=== PATIENT | female | born 1965 | race Caucasian/White ===

== ENCOUNTER → 2017-10-06 | Outpatient (REF) | payer BC | LOC: M SFHCWAGY 10:10 | PROVIDERS: ATTEND Nurse Practitioner Family | DX: Z12.4 Encounter for screening for malignant neoplasm of cervix (principal) ==

== ENCOUNTER → 2017-10-06 | Outpatient (CLI) | payer BC ==
--- NOTE | 2017-10-06 12:44 | REPMRS ---
Patient History The patient states she had a clinical breast exam in 09/2017. Patient had first child at age 36. No known family history of cancer. Took progesterone for 2 months. Digital Woman Screen Mammo: October 06, 2017 - Exam #: [id number] Bilateral CC and MLO view(s) were taken. Technologist: Bettina Dobson Technologist Prior study comparison: October 07, 2016, digital woman screen mammo performed at [facility] to [facility]. October 09, 2015, digital woman screen mammo performed at [facility] to [facility]. FINDINGS: There are scattered fibroglandular densities. There has been no change in the appearance of the mammogram from the prior studies. There is a mild amount of residual fibroglandular tissue which is fairly symmetric. There is no interval development of dominant mass, architectural distortion, or clustered microcalcification suggestive of malignancy. ASSESSMENT: BI-RADS/ACR category 1 mammogram. Negative. Recommendation Routine screening mammogram in 1 year (for women over age 40). This mammogram was interpreted with the aid of an FDA-approved computer-aided dectection system. Electronically Signed By: Rivera Dial MD 10/06/17 [id number]
== END ==
LOC: M WHC 09:14
PROVIDERS: ATTEND Nurse Practitioner Family
DX: Z12.31 Encounter for screening mammogram for malignant neoplasm of breast (principal); Z92.23 Personal history of estrogen therapy

== ENCOUNTER → 2018-12-30 | Outpatient (CLI) | payer BC ==
--- NOTE | 2018-12-30 13:45 | REPMRS ---
Patient History The patient states she had a clinical breast exam in 01/12 No known family history of cancer. Took progesterone for 2 months. 3D TOMOSYNTHESIS WAS PERFORMED. Digital Woman Screen Mammo: December 30, 2018 - Exam #: [id number] Bilateral CC and MLO view(s) were taken. Technologist: Mary Anne Urena, Technologist Prior study comparison: October 06, 2017, digital woman screen mammo performed at [facility]. October 07, 2016, digital woman screen mammo performed at [facility] to [facility]. FINDINGS: There are scattered fibroglandular densities. There has been no change in the appearance of the mammogram from the prior studies. There is a mild amount of residual fibroglandular tissue which is fairly symmetric. There is no interval development of dominant mass, architectural distortion, or clustered microcalcification suggestive of malignancy. Assessment: BI-RADS/ACR category 1 mammogram. Negative Mammogram. Recommendation Routine screening mammogram in 1 year (for women over age 40). This mammogram was interpreted with the aid of an FDA-approved computer-aided dectection system. Electronically Signed By: Rivera Dial MD 12/30/18 [id number]
== END ==
LOC: M WHC 10:51
PROVIDERS: ATTEND Nurse Practitioner Family
DX: Z12.31 Encounter for screening mammogram for malignant neoplasm of breast (principal)

== ENCOUNTER → 2020-01-03 | Outpatient (CLI) | payer BC ==
--- NOTE | 2020-01-03 11:41 | REPMRS ---
Patient History The patient states she had a clinical breast exam in December 2019. No known family history of cancer. Took progesterone for 2 months. Digital Woman Screen Mammo: January 03, 2020 - Exam #: [id number] Bilateral CC and MLO view(s) were taken. Technologist: Fatmata Akhtar, Technologist Prior study comparison: December 30, 2018, bilateral digital woman screen mammo performed at [facility]. October 06, 2017, digital woman screen mammo performed at [facility]. October 07, 2016, digital woman screen mammo performed at [facility]. FINDINGS: There are scattered fibroglandular densities. There has been no change in the appearance of the mammogram from the prior studies. There is a mild amount of scattered fibroglandular density which is fairly symmetric. There is no interval development of dominant mass, architectural distortion, or grouped microcalcification suggestive of malignancy. 3-D tomosynthesis shows no additional findings. Assessment: BI-RADS/ACR category 1 mammogram. Negative Mammogram. Recommendation Routine screening mammogram of both breasts in 1 year (for women over age 40). This patient's Lifetime Breast Cancer Risk is estimated at 13.4 %. This mammogram was interpreted with the aid of an FDA-approved computer-aided dectection system. Electronically Signed By: Salvador Ayon MD 01/03/20 1392
== END ==
LOC: M WHC 10:03
PROVIDERS: ATTEND Nurse Practitioner Family
DX: Z12.31 Encounter for screening mammogram for malignant neoplasm of breast (principal)

== ENCOUNTER → 2020-01-03 | Outpatient (REF) | payer BC | LOC: M SFHCWAGY 13:04 | PROVIDERS: ATTEND Nurse Practitioner Family | DX: Z12.4 Encounter for screening for malignant neoplasm of cervix (principal) | CPT/HCPCS: 87624; G0123 ==

== ENCOUNTER → 2020-04-05 | Outpatient (CLI) | payer BC | LOC: M LABSMTC 10:31 | PROVIDERS: ATTEND Pediatrics | DX: Z03.818 Encounter for observation for suspected exposure to other biological agents ruled out (principal); Z11.59 Encounter for screening for other viral diseases | CPT/HCPCS: C9803; U0003 ==

== ENCOUNTER → 2020-07-06 | Outpatient (CLI) | payer SELFPAY | LOC: M LABSMTC 09:37 | PROVIDERS: ATTEND Pediatrics | DX: Z20.828 Contact with and (suspected) exposure to other viral communicable diseases (principal) ==

== ENCOUNTER → 2021-01-08 | Outpatient (CLI) | payer BC, SELFPAY ==
--- NOTE | 2021-01-08 12:05 | REPMRS ---
Patient History The patient states she had a clinical breast exam in December 2020. No known family history of cancer. Took progesterone for 2 months. Digital Woman Screen Mammo: January 08, 2021 - Exam #: [id number] Bilateral CC and MLO view(s) were taken. Technologist: RT Norman Prior study comparison: January 03, 2020, bilateral digital woman screen mammo performed at [facility]. December 30, 2018, bilateral digital woman screen mammo performed at [facility]. October 06, 2017, digital woman screen mammo performed at [facility]. FINDINGS: The breast tissue is almost entirely fat. The [place] volumetric breast density category is: A. There has been no change in the appearance of the mammogram from the prior studies. There is no interval development of dominant mass, architectural distortion, or grouped microcalcification typical of malignancy. 3-D tomosynthesis shows no additional findings. Assessment: BI-RADS/ACR category 1 mammogram. Negative Mammogram. Recommendation Routine screening mammogram of both breasts in 1 year (for women over age 40). This patient's [facility] Lifetime Breast Cancer RIsk is estimated at 13.1 %. This mammogram was interpreted with the aid of an FDA-approved computer-aided dectection system. Electronically Signed By: Salvador Ayon MD 01/08/21 [id number]
== END ==
LOC: M WHC 10:03
PROVIDERS: ATTEND Nurse Practitioner Family
DX: Z12.31 Encounter for screening mammogram for malignant neoplasm of breast (principal)

== ENCOUNTER 2021-09-14 13:59 | Emergency (ER) | payer BC ==
[~2021-09-14] VITALS: Ht 160 cm; Wt 90.0 kg
[2021-09-14 14:11] VITALS: BP 144/80
--- OUTSIDE RECORDS SUMMARY | 2021-09-14 14:11 | CCD ---
Continuity of Care Document (CCD) Created on: 07/27/2021 Vee Jara External Reference #: [id number] : [id number] Sex: Female Author Author Lab Schedule, Vee Spencer Organization Unknown Address [address] [place] [phone] Phone Unavailable Care Team Providers Care Italian Tutor Name Role Phone Marilee Montaño MD AUTM [phone] [facility] AUTM [phone] Problems Active Problems Provider Date Allergic rhinitis Marilee Montaño M.D. Onset: 2 Migraine Marilee Montaño M.D. Onset: 2 Vitamin D deficiency Marilee Montaño M.D. Onset: 06/14/20 15 Benign essential hypertension Marilee Montaño M.D. Onset: 06/14/2015 Essential hypertension Marilee Montaño M.D. Onset: 2014 Social History Type Date Description Comments Sex Unknown ETOH Use Denies alcohol use Tobacco Use Start: Unknown Patient has never smoked Allergies and adverse reactions Description No Known Drug Allergies Medications Active Medications SIG Qnty Indications Ordering Provide r Date B-Complex Capsules 1 by mouth every day 90caps Marilee Montaño M.D. 01/23/2021 Tumeric qd Marilee Montaño M.D. 0 01/23/2021 Co-Enzyme Q10 100mg Capsules 1-2 every day Marilee Montaño M.D. 01/24/20 21 Powered Collagen mix in coffee qd Marilee carpenter M.D. 01/23/2021 Tylenol PM Extra Strength 500-25mg Tablets 1-2 by mouth every night at bedtime as needed Marilee Montaño M.D. 09/18/2020 Reserval 2 by mouth every day Marilee langston M.D. 06/14/2020 Cholestoff 450mg Tablets 4/d Marilee Montaño M.D. 06/14/2020 Loratadine 10mg Capsules 1 by mouth every day Marilee Montaño M.D. 12/13/19 20 Fish Oil 1000mg Capsules 1 by mouth every day Marilee Montaño M.D. 12/13/19 20 Probiotic Capsules 1 by mouth every day Marilee Montaño M.D. 12/13/2019 Lisinopril 10mg Tablets take one tablet by mouth at bedtime 90tabs Marilee Montaño M.D. 018 Fluticasone Propionate 50mcg/Act Suspension 2 sprays each nostril daily prn 16gm Marilee Montaño M.D. 03/17/2017 Azelastine HCL (Nasal) 0.1% Soluti on two sprays in each nostril once daily prn 30ml Marilee agarwal M.D. 03/17/2017 Neti Pot Kit Sinus Wash Kit prn Marilee Montaño M.D. 02/15/2016 Vitamin D3 5000Unit Capsules every day Marilee Montaño M.D. 06/14/2015 Vitamin E 400Unit Capsules 1 by mouth 1-2x/d 30caps Marilee Montaño M.D. 06/14/20 15 Excedrin Migraine [id number] Tab lets po bid prn Marilee Montaño M.D. 12/06/19 14 Saline Nasal [place] 0.65% Solution use as directed prn Marilee Montaño M.D. 03/17/20 12 Naratriptan HCL 2.5mg Tablets take 1 tablet for migraine 24tabs Marilee Montaño M.D. 02/2012 Multivitamins Capsules 1 po qd Unknown Medications Administered in Office Medication SIG Qnty Indications Ordering Provider Date Immunization Adminstration,1 Vaccine/Tox oid Injection Marilee Montaño M.D. 11/27 Immunization Adminstration,1 Vaccine/Tox oid Injection Marilee Montaño M.D. 09/26 Immunizations CPT Code Status Date Vaccine Lot # [id number] Given 12/13/2019 Adacel- Tetanus Diphtheria P ertussis [id number] Given 10/05/2018 Influenza Virus Vaccine, Quadrivalent (Cciiv4), Derived From Cell [id number] Given 08/19/2016 Fluvirin Virus Vaccine [id number] Q2037 Given 08/21/2015 Fluvirin Virus Vaccine 15926 01 Q2037 Given 08/22/2014 Fluvirin Virus Vaccine [id number] 21 Q2037 Refused 08/16/2013 Fluvirin Virus Vaccine [id number] Refused 09/01/2012 Fluvirin Virus Vaccine Vital Signs Date Vital Result Comment 01/23/2021 10:56am BP Systolic 128 mmHg RT Arm BP Diastolic 78 mmHg RT Arm Heart Rate 68 /min Height 63.25 inches 5'3.25" Weight 202.00 lb BMI (Body Mass Index) 35.5 kg/m2 09/18/2020 10:00am BP Systolic 138 mmHg RT Arm BP Diastolic 86 mmHg RT Arm Heart Rate 68 /min Height 63.25 inches 5'3.25" Weight 200.00 lb BMI (Body Mass Index) 35.1 kg/m2 Results Test Acquired Date Facility Test Result H/L Range Note Basic Metabolic Panel 07/27/2021 [facility] Image Archivist: Dr Jack [place] [id number] [phone] Glucose 87 mg/dL 74 - 99 1 BUN 12 mg/dL 7 - 18 Creatinine 0.8 mg/dL 0.6 - 1.3 Sodium 145 mEq/L 136 - 145 Potassium 4.4 mEq/L 3.5 - 5.1 Chloride 108 mEq/L High 98 - 107 Carbon Dioxide 29 mEq/L 21 - 32 Calcium 9.2 mg/dL 8.5 - 10.1 GFR >= 60 mL/min >60 GFR >= 60 mL/min >60 2 Lipid Profile 07/27/2021 [facility] Image Archivist: [place] [address] [phone] Cholesterol 213 mg/dL High 131 - 200 Triglycerides 56 mg/dL 30 - 150 HDL Cholesterol 59 mg/dL 35 - 60 LDL (Calculated) 143 CALC 50 - 159 Laboratory test finding 01/31/2021 [facility] Image Archivist: Dr Jack Montana [place] [id number] [phone] Fecal Immunochemical Test NEGATIVE Negati ve 1 100-125 mg/dL PRE-DIABET ES/FASTING >126 mg/dL DIABETES/FASTING 2 CHRONIC KIDNEY DISEASE STAGI NG PER NKF STAGE I & II GFR >= 60 NORMAL TO MILDLY DECREASED STAGE III GFR 30-59 MODERATELY DECREASED STAGE IV GFR 15-29 SEVERELY DECREASED STAGE V GFR <15 VERY LITTLE GFR LEFT ESRD GFR <15 ON FIELD AUTOMOBILE ADJUSTER Procedures Date Code Description Status 01/08/2021 [id number] Mammogram Completed 10/06/2017 [id number] Mammogram Completed Medical Devices Description No Information Available Encounters Description No Information Available Assessments Date Code Description Provider 01/31/2021 Z12.12 Encounter for screening for tello gnant neoplasm of rectum Marilee Montaño M.D. 01/31/2021 Z12.12 Encounter for screening for tello gnant neoplasm of rectum Lab Schedule Plan of Treatment Future Appointment(s):* 07/30/2021 9:30 am - Marilee Montaño M.D. at [facility] 01/23/2021 - Marilee Montaño M.D.* Z00.00 Encounter for general adult medical examination without abnormal findings * I10 Essential (primary) hypertension * E78.00 Pure hypercholesterolemia, unspecified * G43.909 Migraine, unspecified, not intractable, without status migra * J30.9 Allergic rhinitis, unspecified * G47.00 Insomnia, unspecified * E66.09 Other obesity due to excess calories * Z68.35 Body mass index [BMI] 35.0-35.9, adult * Z13.89 Encounter for screening for other disorder * All * New Medication:* Powered Collagen - mix in coffee qd * B-Complex - 1 by mouth every day * Tumeric - qd * Co-Enzyme Q10 100 mg - 1-2 every day * Comments:* 7. Menopausal. Option of Estroven based products discussed.8. Health Maintenance. She just had her pap smear with Gynecology. Mammogram was obtained and is normal. Adacel was administered 12/13/2019, Patient had shingles July 2017. She gets an annual flu shot and she is considering COVID vaccine. She will do the stool hemoccult Functional Status Description No Information Available Mental Status Description No Information Available Referrals Description No Information Available
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
--- OUTSIDE RECORDS SUMMARY | 2021-09-14 14:11 | CCD | Continuity of Care Document ---
Author Author Lab Schedule, Vee Spencer Organization Unknown Address [address] [place] [address] Phone Unavailable Care Team Providers Care Laboratory Secretary Name Role Phone Marilee Montaño MD AUTM [phone] [facility] AUTM [phone] Problems Active Problems Provider Date Allergic rhinitis [...] SIG Qnty Indications Ordering Provide r Date Lisinopril 20mg Tablets take one tablet by mouth at bedtime 90tabs Marilee Montaño M.D. 021 Powered Collagen mix in coffee qd Marilee carpenter M.D. 01/23/2021 B-Complex Capsules 1 by mouth every day 90caps Marilee Montaño M.D. 01/23/2021 Tumeric qd Marilee Montaño M.D. 0 01/23/2021 Co-Enzyme Q10 100mg Capsules 1-2 every day Marilee Montaño M.D. 01/24/20 21 Tylenol PM Extra Strength 500-25mg Tablets 1-2 by mouth every night at bedtime as needed Marilee Montaño M.D. 09/18/2020 Reserval 2 by mouth every day Marilee langston M.D. 06/14/2020 Cholestoff 450mg Tablets 4/d Marilee Montaño M.D. 06/14/2020 Probiotic Capsules 1 by mouth every day Marilee Montaño M.D. 12/13/2019 Fish Oil 1000mg Capsules 1 by mouth every day Marilee Montaño M.D. 12/13/19 20 Loratadine 10mg Capsules 1 by mouth every day Marilee Montaño M.D. 12/13/19 20 Fluticasone Propionate 50mcg/Act Suspension 2 sprays each [...] Marilee Montaño M.D. 06/14/20 15 Excedrin Migraine [phone] Tab lets po bid prn Marilee Montaño M.D. 12/06/19 14 Saline Nasal [place] 0.65% Solution use as directed prn Marilee Montaño M.D. 03/17/20 12 Naratriptan HCL 2.5mg Tablets take 1 tablet for migraine 24tabs Marilee Montaño M.D. 02/2012 Multivitamins Capsules 1 po qd Unknown Medications Administered in Office Medication SIG Qnty Indications Ordering Provider Date Immunization Adminstration,1 Vaccine/Tox oid Injection Marilee Montaño M.D. 01/2021 Immunization Adminstration,1 Vaccine/Tox oid Injection Marilee Montaño M.D. 11/27 Immunization Adminstration,1 Vaccine/Tox oid Injection Marilee Montaño M.D. 09/26 Immunizations CPT Code Status Date Vaccine Lot # [id number] Given 07/30/2021 Influenza Vaccin e Quadrivalent Preser/Antibiotic Free Im Use [id number] Given 12/13/2019 Adacel- Tetanus Diphtheria P ertussis [id number] 01631 Given 10/05/2018 Influenza Virus Vaccine, Quadrivalent (Cciiv4), Derived From Cell [id number] Q2037 Given 08/19/2016 Fluvirin Virus Vaccine [id number] 01 Q2037 Given 08/21/2015 Fluvirin Virus Vaccine 94716 01 Q2037 Given 08/22/2014 Fluvirin Virus Vaccine 07270 21 Q2037 Refused 08/16/2013 Fluvirin Virus Vaccine [id number] Refused 09/01/2012 Fluvirin Virus Vaccine Vital Signs Date Vital Result Comment 07/30/2021 9:34am BP Systolic 154 mmHg RT Arm BP Diastolic 90 mmHg RT Arm BP Systolic Recheck 142 mmHg BP Diastolic Recheck 90 mmHg Heart Rate 64 /min Height 63.25 inches 5'3.25" Weight 207.50 lb BMI (Body Mass Index) 36.5 kg/m2 01/23/2021 10:56am BP Systolic 128 mmHg RT Arm BP Diastolic 78 mmHg RT Arm Heart Rate 68 /min Height 63.25 inches 5'3.25" Weight 202.00 lb BMI (Body Mass Index) 35.5 kg/m2 Results Test Acquired Date Facility Test Result H/L Range Note Basic Metabolic Panel 07/27/2021 [facility] Retort Fireman: [place] [address] [phone] Glucose 87 mg/dL 74 - 99 1 [...] 60 mL/min >60 2 Lipid Profile 07/27/2021 [facility] Retort Fireman: [place] [address] [phone] Cholesterol 213 mg/dL High 131 - 200 Triglycerides 56 mg/dL 30 - 150 HDL Cholesterol 59 mg/dL 35 - 60 LDL (Calculated) 143 CALC 50 - 159 1 100-125 mg/dL PRE-DIABET ES/FASTING >126 mg/dL DIABETES/FASTING 2 CHRONIC KIDNEY DISEASE STAGI NG PER NKF STAGE I & II GFR >= 60 NORMAL TO MILDLY DECREASED STAGE III GFR 30-59 MODERATELY DECREASED STAGE IV GFR 15-29 SEVERELY DECREASED STAGE V GFR <15 VERY LITTLE GFR LEFT ESRD GFR <15 ON ENTERTAINMENT LAWYER Procedures Date Code Description Status 07/30/2021 13909 Office/Outpatient Established Lo w MDM 20-29 Min Completed 01/08/2021 [id number] Mammogram Completed 10/06/2017 [id number] Mammogram Completed Medical Devices Description No Information Available Encounters Type Date Location Provider Dx Diagnosis Office Visit 07/30/2021 9:30a [facility] Paul Montaño M.D. I10 Essential (primary) hyperten stefano E78.00 Pure hypercholesterolemia, u nspecified G43.909 Migraine, unsp, not intracta ble, without status migrainosus Z68.36 Body mass index [BMI] 36.0-3 6.9, adult E66.09 Other obesity due to excess calories J30.9 Allergic rhinitis, unspecifi ed Z23 Encounter for immunization Assessments Date Code Description Provider 07/30/2021 I10 Essential (primary) hypertension Marilee Montaño M.D. 07/30/2021 E78.00 Pure hypercholesterolemia, unspe cified Marilee Montaño M.D. 07/30/2021 G43.909 Migraine, unspecified, not intra ctable, without status migra Marilee Montaño M.D. 07/30/2021 Z68.36 Body mass index [BMI] 36.0-36.9, adult Marilee Montaño M.D. 07/30/2021 E66.09 Other obesity due to excess steven micah Marilee Montaño M.D. 07/30/2021 J30.9 Allergic rhinitis, unspecified J adan Montaño M.D. 07/30/2021 Z23 Encounter for immunization Marilee Montaño M.D. 07/27/2021 I10 Essential (primary) hypertension Marilee Montaño M.D. 07/27/2021 I10 Essential (primary) hypertension Lab Schedule 07/27/2021 E78.00 Pure hypercholesterolemia, unspe cified Marilee Montaño M.D. 07/27/2021 E78.00 Pure hypercholesterolemia, unspe cified Lab Schedule Plan of Treatment Future Appointment(s):* 10/29/2021 8:40 am - Lab Schedule at [facility] * 11/05/2021 9:45 am - Marilee Montaño M.D. at [facility] 07/30/2021 - Marilee Montaño M.D.* I10 Essential (primary) hypertension * E78.00 Pure hypercholesterolemia, unspecified * G43.909 Migraine, unspecified, not intractable, without status migra * Z68.36 Body mass index [BMI] 36.0-36.9, adult * E66.09 Other obesity due to excess calories * J30.9 Allergic rhinitis, unspecified * Z23 Encounter for immunization * All * New Medication:* Lisinopril 20 mg - take one tablet by mouth at bedtime * Comments:* Health Maintenance. Flu shot is administered today. Long discussion regarding the COVID vaccine, she will consider. Functional Status Description No Information Available Mental Status Description No Information Available Referrals Description No Information Available
--- OUTSIDE RECORDS SUMMARY | 2021-09-14 14:11 | CCD | Continuity of Care Document ---
Author Author Vee Montaño M.D. Organization Unknown Address [address] [place] [address] [address] [place] [address] Phone [phone] Care Team Providers Care Hardware Press Operator Name Role Phone Marilee Montaño MD AUTM [phone] [facility] AUTM [phone] Problems Active Problems Provider Date Allergic rhinitis [...] Capsules 1 by mouth every day Marilee Montaoñ M.D. 12/13/19 20 Loratadine 10mg Capsules 1 [...] Marilee Montaño M.D. 06/14/20 15 Excedrin Migraine [phone] Tab lets po bid prn Marilee Montaño M.D. 12/06/19 14 Saline Nasal [place] 0.65% Solution use as directed prn Marilee [...] CPT Code Status Date Vaccine Lot # [id number] Given 07/30/2021 Influenza Vaccin e Quadrivalent Preser/Antibiotic Free Im Use 237150 43365 Given 12/13/2019 Adacel- Tetanus Diphtheria P ertussis [id number] 14015 Given 10/05/2018 Influenza Virus Vaccine, Quadrivalent (Cciiv4), Derived From Cell [id number] Q2037 Given 08/19/2016 Fluvirin Virus Vaccine 92828 01 Q2037 Given 08/21/2015 Fluvirin Virus Vaccine 19489 01 Q2037 Given 08/22/2014 Fluvirin Virus Vaccine 91544 21 Q2037 Refused 08/16/2013 Fluvirin Virus Vaccine [...] H/L Range Note Basic Metabolic Panel 07/27/2021 [facility] Senior Management Consultant: [place] [address] [phone] Glucose 87 mg/dL 74 - 99 1 [...] 60 mL/min >60 2 Lipid Profile 07/27/2021 [facility] Senior Management Consultant: Dr [address] [place], [place] [id number] [phone] Cholesterol 213 mg/dL High 131 - 200 Triglycerides 56 mg/dL 30 - 150 HDL Cholesterol 59 mg/dL 35 - 60 LDL (Calculated) 143 CALC 50 - 159 Laboratory test finding 01/31/2021 [facility] Senior Management Consultant: Dr Jack [address] [place], [place] [id number] [phone] Fecal Immunochemical Test NEGATIVE Negati ve 1 100-125 mg/dL PRE-DIABET ES/FASTING >126 mg/dL DIABETES/FASTING 2 CHRONIC KIDNEY DISEASE STAGI NG PER NKF STAGE I & II GFR >= 60 NORMAL TO MILDLY DECREASED STAGE III GFR 30-59 MODERATELY DECREASED STAGE IV GFR 15-29 SEVERELY DECREASED STAGE V GFR <15 VERY LITTLE GFR LEFT ESRD GFR <15 ON BULL GANG SUPERVISOR Procedures Date Code Description Status 07/30/2021 01306 Office/Outpatient Established Lo w MDM 20-29 Min Completed 01/08/2021 [id number] Mammogram Completed 10/06/2017 [id number] Mammogram Completed Medical Devices Description No Information Available Encounters Type Date Location Provider Dx Diagnosis Office Visit 07/30/2021 9:30a [facility] Paul Montaño M.D. I10 Essential [...] M.D. 07/30/2021 Z23 Encounter for immunization Marilee Mnotaño M.D. 01/31/2021 Z12.12 Encounter for screening for tello gnant neoplasm of rectum Marilee Montaño M.D. 01/31/2021 Z12.12 Encounter for screening for tello gnant neoplasm of rectum Lab Schedule Plan of Treatment Future Appointment(s):* 10/29/2021 8:40 am - Lab Schedule at [facility] * 11/05/2021 9:45 am - Marilee Montaño M.D. at [facility] 07/30/2021 - Marilee Montaño M.D.* [...]
--- OUTSIDE RECORDS SUMMARY | 2021-09-14 14:11 | CCD | Continuity of Care Document ---
Author Author Lab Schedule, Vee Spencer Organization Unknown Address [address] [place] [address] Phone Unavailable Care Team Providers Care Appellate Court Judge Name Role Phone Marilee Montaño MD AUTM [phone] [facility] AUTM [phone] Problems Active Problems Provider Date Allergic rhinitis [...] Marilee Montaño M.D. 06/14/20 15 Excedrin Migraine [phone] Tab lets po bid prn Marilee Montaño M.D. 12/06/19 14 Saline Nasal [place] 0.65% Solution use as directed prn Marilee [...] CPT Code Status Date Vaccine Lot # 71382 Given 12/13/2019 Adacel- Tetanus Diphtheria P ertussis [id number] 02878 Given 10/05/2018 Influenza Virus Vaccine, Quadrivalent (Cciiv4), Derived From Cell [id number] Q2037 Given 08/19/2016 Fluvirin Virus Vaccine 30965 01 Q2037 Given 08/21/2015 Fluvirin Virus Vaccine 44210 01 Q2037 Given 08/22/2014 Fluvirin Virus Vaccine 38582 21 Q2037 Refused 08/16/2013 Fluvirin Virus Vaccine [...] Date Facility Test Result H/L Range Note Laboratory test finding 01/31/2021 [facility] [employer] Teacher: Dr Jack [address] [place], [place] [id number] [phone] Fecal Immunochemical Test NEGATIVE Negati ve Procedures Date Code Description Status 01/08/2021 [id number] Mammogram Completed 10/06/2017 [id number] Mammogram Completed Medical Devices Description No Information Available Encounters Description No Information Available Assessments Date Code Description Provider 01/31/2021 Z12.12 Encounter for screening for tello gnant neoplasm of rectum Marilee Montaño M.D. 01/31/2021 Z12.12 Encounter for screening for tello gnant neoplasm of rectum Lab Schedule Plan of Treatment Future Appointment(s):* 07/30/2021 9:30 am - Marilee Montaño M.D. at [facility] 01/23/2021 - Marilee M. Sabra, M.D.* Z00.00 Encounter for general adult medical [...]
--- OUTSIDE RECORDS SUMMARY | 2021-09-14 14:11 | CCD ---
Continuity of Care Document (CCD) Created on: 07/30/2021 Vee Jara External Reference #: [id number] : [id number] Sex: Female Author Author Vee Montaño M.D. Organization Unknown Address [address] [place] [address] [address] [place] [address] Phone [phone] Care Team Providers Care Sales Engagement Executive Name Role Phone Marilee Montaño MD AUTM [phone] [facility] AUTM [phone] Problems Active Problems Provider Date Allergic rhinitis [...] 02/15/2016 Vitamin D3 5000Unit Capsules every day Marliee Montaño M.D. 06/14/2015 Vitamin E 400Unit Capsules 1 by mouth 1-2x/d 30caps Marilee Montaño M.D. 06/14/20 15 Excedrin Migraine [phone] Tab lets po bid prn Marilee Montaño M.D. 12/06/19 14 Saline Nasal [place] 0.65% Solution use as directed prn Marilee [...] CPT Code Status Date Vaccine Lot # 15990 Given 07/30/2021 Influenza Vaccin e Quadrivalent Preser/Antibiotic Free Im Use [id number] 15788 Given 12/13/2019 Adacel- Tetanus Diphtheria P ertussis [id number] 93580 Given 10/05/2018 Influenza Virus Vaccine, Quadrivalent (Cciiv4), Derived From Cell 456608 Q2037 Given 08/19/2016 Fluvirin Virus Vaccine 87973 01 Q2037 Given 08/21/2015 Fluvirin Virus Vaccine 93872 01 Q2037 Given 08/22/2014 Fluvirin Virus Vaccine 14019 21 Q2037 Refused 08/16/2013 Fluvirin Virus Vaccine [...] H/L Range Note Basic Metabolic Panel 07/27/2021 [facility] Hazard Mitigation Officer: [place] [address] [phone] Glucose 87 mg/dL 74 - 99 1 [...] 60 mL/min >60 2 Lipid Profile 07/27/2021 [facility] Hazard Mitigation Officer: [place] [address] [phone] Cholesterol 213 mg/dL High 131 - 200 Triglycerides 56 mg/dL 30 - 150 HDL Cholesterol 59 mg/dL 35 - 60 LDL (Calculated) 143 CALC 50 - 159 Laboratory test finding 01/31/2021 [facility] Hazard Mitigation Officer: Dr Jack [address] [place], [place] [id number] [phone] Fecal Immunochemical Test NEGATIVE Negati ve 1 100-125 mg/dL PRE-DIABET ES/FASTING >126 mg/dL DIABETES/FASTING 2 CHRONIC KIDNEY DISEASE STAGI NG PER NKF STAGE I & II GFR >= 60 NORMAL TO MILDLY DECREASED STAGE III GFR 30-59 MODERATELY DECREASED STAGE IV GFR 15-29 SEVERELY DECREASED STAGE V GFR <15 VERY LITTLE GFR LEFT ESRD GFR <15 ON BRIDGES SUPERVISOR Procedures Date Code Description Status 01/08/2021 [id number] Mammogram Completed 10/06/2017 [id number] Mammogram Completed Medical Devices Description No Information Available Encounters Description No Information Available Assessments Date Code Description Provider 01/31/2021 Z12.12 Encounter for screening for tello gnant neoplasm of rectum Marilee Montaño M.D. 01/31/2021 Z12.12 Encounter for screening for tello gnant neoplasm of rectum Lab Schedule Plan of Treatment 01/23/2021 - Marilee Montaño M.D.* Z00.00 Encounter [...]
--- NOTE | 2021-09-14 14:44 | REP ---
INDICATION: fall, injury COMPARISON: None. TECHNIQUE: AP, lateral, bilateral oblique views. FINDINGS: There is a nondisplaced oblique fracture of the distal fibular metaphysis with overlying soft tissue swelling. Remainder of the examination is intact. IMPRESSION: Oblique fracture of the distal fibular metaphysis. <Electronically signed by Marco Gross > 09/14/21 [id number]
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
== END 2021-09-14 15:47 | disposition home or self-care (01) ==
LOC: M ED 13:59
DX: S93.402A Sprain of unspecified ligament of left ankle, initial encounter (principal); S82.832A Other fracture of upper and lower end of left fibula, initial encounter for closed fracture; X50.9XXA Other and unspecified overexertion or strenuous movements or postures, initial encounter; Y92.512 Supermarket, store or market as the place of occurrence of the external cause; I10 Essential (primary) hypertension; Z78.0 Asymptomatic menopausal state

== ENCOUNTER → 2022-02-05 | Outpatient (CLI) | payer BC | LOC: M WHC 12:30 | PROVIDERS: ATTEND Internal Medicine | DX: Z12.31 Encounter for screening mammogram for malignant neoplasm of breast (principal); Z13.820 Encounter for screening for osteoporosis; M85.89 Other specified disorders of bone density and structure, multiple sites ==

== ENCOUNTER → 2022-12-23 | Outpatient (CLI) | payer BC | LOC: M WUC 11:36 | PROVIDERS: ATTEND Internal Medicine | DX: M47.816 Spondylosis without myelopathy or radiculopathy, lumbar region (principal); M54.31 Sciatica, right side ==

== ENCOUNTER → 2023-02-10 | Outpatient (CLI) | payer BC | LOC: M WHC 09:14 | PROVIDERS: ATTEND Internal Medicine | DX: Z12.31 Encounter for screening mammogram for malignant neoplasm of breast (principal) ==

== ENCOUNTER 2023-04-21 12:22 | Emergency (ER) | payer BC ==
[~2023-04-21] VITALS: Ht 160 cm; Wt 90.3 kg
[2023-04-21 13:32] LABS: BASO % 0.3 % (0.0-1.0); EOS # 0.1 10^3/uL (0.0-0.5); EOS % 0.9 % (0.0-3.0); HEMATOCRIT 40.6 % (36.0-47.0); LYMPH # 2.4 10^3/uL (1.5-5.0); LYMPH % 28.1 % (24.0-44.0); MEAN CORPUSCULAR HEMOGLOBIN 28.8 pg (27.0-33.0); MEAN CORPUSCULAR VOLUME 89.8 fl (80.0-96.0); MONO # 0.7 10^3/uL (0.0-0.8); MONO % 8.4 % (2.0-8.0); NEUTROPHILS # 5.3 10^3/uL (1.5-8.5); NEUTROPHILS % 61.8 % (36.0-66.0); PLATELET COUNT, AUTOMATED 323 10^3/uL (150-450); RED BLOOD COUNT 4.52 10^6/uL (4.00-5.40); WHITE BLOOD COUNT 8.6 10^3/uL (4.0-10.0)
[2023-04-21 13:48] LABS: LIPASE 36 U/L (12-53)
[2023-04-21 13:52] LABS: ALBUMIN 3.8 G/DL (3.2-5.2); ALKALINE PHOSPHATASE 56 U/L (46-116); ALT/SGPT 20 U/L (7.0-40); AST/SGOT 11 U/L (<34); BILIRUBIN,DIRECT 0.1 MG/DL (<0.4); BILIRUBIN,TOTAL 0.4 MG/DL (0.3-1.2); BLOOD UREA NITROGEN 12 MG/DL (9-23); CALCIUM LEVEL 9.6 MG/DL (8.5-10.1); CARBON DIOXIDE LEVEL 27 MMOL/L (20-31); CHLORIDE LEVEL 106 MMOL/L (98-107); CREATININE FOR GFR 0.63 MG/DL (0.55-1.30); GLOMERULAR FILTRATION RATE > 60.0 (>51); GLUCOSE, FASTING 89 MG/DL (60-100); POTASSIUM SERUM 4.8 MMOL/L (3.5-5.1); SODIUM LEVEL 139 MMOL/L (136-145); TOTAL PROTEIN 6.8 G/DL (5.7-8.2)
[2023-04-21 18:05] LABS: APPEARANCE, URINE CLEAR (CLEAR); BACTERIA, URINE AUTO NEGATIVE (NEGATIVE); BILIRUBIN, URINE AUTO NEGATIVE (NEGATIVE); BLOOD, URINE BLOOD NEGATIVE (NEGATIVE); COLOR, URINE YELLOW (YELLOW); GLUCOSE, URINE (UA) AUTO NEGATIVE (NEGATIVE); KETONE, URINE AUTO 1+ mg/dL (NEGATIVE); LEUKOCYTE ESTERASE, URINE AUTO TRACE (NEGATIVE); MUCUS, URINE SMALL (NEGATIVE); NITRITE, URINE AUTO NEGATIVE (NEGATIVE); PROTEIN, URINE AUTO NEGATIVE (NEGATIVE); RBC, URINE AUTO 1 /HPF (0-3); SPECIFIC GRAVITY URINE AUTO 1.008 (1.002-1.035); SQUAMOUS EPITHELIAL CELL UR AU 2 /HPF (0-6); UROBILINOGEN, URINE AUTO 0.2 mg/dL (0.0-2.0); WBC, URINE AUTO 2 /HPF (0-3)
[2023-04-21 18:47] VITALS: BP 144/76; TEMP 98.7; O2SAT 97
== END 2023-04-21 18:45 | disposition home or self-care (01) ==
LOC: M ED 12:22
DX: M94.0 Chondrocostal junction syndrome [Tietze] (principal); I10 Essential (primary) hypertension

== ENCOUNTER → 2023-05-29 | Outpatient (REF) | payer BC ==
[2023-05-29 14:37] LABS: APPEARANCE, URINE CLEAR (CLEAR); BACTERIA, URINE AUTO NEGATIVE (NEGATIVE); BILIRUBIN, URINE AUTO NEGATIVE (NEGATIVE); BLOOD, URINE BLOOD NEGATIVE (NEGATIVE); COLOR, URINE STRAW (YELLOW); GLUCOSE, URINE (UA) AUTO NEGATIVE (NEGATIVE); KETONE, URINE AUTO NEGATIVE (NEGATIVE); LEUKOCYTE ESTERASE, URINE AUTO TRACE (NEGATIVE); NITRITE, URINE AUTO NEGATIVE (NEGATIVE); PROTEIN, URINE AUTO NEGATIVE (NEGATIVE); RBC, URINE AUTO 0 /HPF (0-3); SPECIFIC GRAVITY URINE AUTO 1.005 (1.002-1.035); SQUAMOUS EPITHELIAL CELL UR AU 1 /HPF (0-6); UROBILINOGEN, URINE AUTO 0.2 mg/dL (0.0-2.0); WBC, URINE AUTO 0 /HPF (0-3)
[2023-05-29 14:38] LABS: BASO % 0.5 % (0.0-1.0); EOS # 0.2 10^3/uL (0.0-0.5); EOS % 2.7 % (0.0-3.0); HEMATOCRIT 40.7 % (36.0-47.0); HEMOGLOBIN 12.8 g/dl (12.0-15.5); LYMPH # 2.4 10^3/uL (1.5-5.0); LYMPH % 40.7 % (24.0-44.0); MEAN CORPUSCULAR HEMOGLOBIN 29.1 pg (27.0-33.0); MEAN CORPUSCULAR HGB CONC 31.4 g/dl (32.0-36.5); MEAN CORPUSCULAR VOLUME 92.5 fl (80.0-96.0); MONO # 0.6 10^3/uL (0.0-0.8); MONO % 9.5 % (2.0-8.0); NEUTROPHILS # 2.8 10^3/uL (1.5-8.5); NEUTROPHILS % 46.1 % (36.0-66.0); PLATELET COUNT, AUTOMATED 321 10^3/uL (150-450)
[2023-05-29 15:05] LABS: BLOOD UREA NITROGEN 15 MG/DL (9-23); CALCIUM LEVEL 8.9 MG/DL (8.5-10.1); CARBON DIOXIDE LEVEL 27 MMOL/L (20-31); CHLORIDE LEVEL 107 MMOL/L (98-107); CREATININE FOR GFR 0.54 MG/DL (0.55-1.30); GLOMERULAR FILTRATION RATE > 60.0 (>51); GLUCOSE, FASTING 79 MG/DL (60-100); MAGNESIUM LEVEL 1.8 MG/DL (1.8-2.4); POTASSIUM SERUM 4.6 MMOL/L (3.5-5.1); SODIUM LEVEL 141 MMOL/L (136-145)
[2023-06-02 14:49] LABS: CHOLESTEROL LEVEL 221 MG/DL (<200); CHOLESTEROL RISK RATIO 3.89 (<5); HDL CHOLESTEROL 56.8 MG/DL (>40); LDL CHOLESTEROL 149.4 MG/DL (<100); NON-HDL-C 164.2 MG/DL; TRIGLYCERIDES LEVEL 74 MG/DL (<150)
== END ==
LOC: M LAB REF 11:34
PROVIDERS: ATTEND Internal Medicine
DX: I11.9 Hypertensive heart disease without heart failure (principal); I49.3 Ventricular premature depolarization; E78.00 Pure hypercholesterolemia, unspecified

== ENCOUNTER → 2023-09-24 | Outpatient (REF) | payer BC ==
[~2023-09-24] MED LIST: CO Q10CA PO; CO Q50CA8 PO; EQL50TAB2 PO; LISI40TA4 PO; VITA100093 PO; VITA500C24 PO; [UNRECOGNIZED DRUG - REMARK]
[2023-09-24 18:32] LABS: BASO % 0.3 % (0.0-1.0); EOS # 0.1 10^3/uL (0.0-0.5); EOS % 1.9 % (0.0-3.0); HEMATOCRIT 41.8 % (36.0-47.0); LYMPH # 2.8 10^3/uL (1.5-5.0); LYMPH % 44.8 % (24.0-44.0); MEAN CORPUSCULAR HEMOGLOBIN 28.7 pg (27.0-33.0); MEAN CORPUSCULAR HGB CONC 31.1 g/dl (32.0-36.5); MEAN CORPUSCULAR VOLUME 92.3 fl (80.0-96.0); MONO # 0.6 10^3/uL (0.0-0.8); NEUTROPHILS # 2.8 10^3/uL (1.5-8.5); NEUTROPHILS % 43.7 % (36.0-66.0); PLATELET COUNT, AUTOMATED 340 10^3/uL (150-450); RED BLOOD COUNT 4.53 10^6/uL (4.00-5.40); WHITE BLOOD COUNT 6.3 10^3/uL (4.0-10.0)
[2023-09-24 19:07] LABS: BLOOD UREA NITROGEN 12 MG/DL (9-23); CALCIUM LEVEL 9.1 MG/DL (8.5-10.1); CARBON DIOXIDE LEVEL 28 MMOL/L (20-31); CHLORIDE LEVEL 106 MMOL/L (98-107); CHOLESTEROL LEVEL 264 MG/DL (<200); CHOLESTEROL RISK RATIO 3.92 (<5); CREATININE FOR GFR 0.51 MG/DL (0.55-1.30); GLOMERULAR FILTRATION RATE > 60.0 (>51); GLUCOSE, FASTING 82 MG/DL (60-100); HDL CHOLESTEROL 67.2 MG/DL (>40); LDL CHOLESTEROL 180.6 MG/DL (<100); NON-HDL-C 196.8 MG/DL; POTASSIUM SERUM 4.3 MMOL/L (3.5-5.1); SODIUM LEVEL 141 MMOL/L (136-145); TRIGLYCERIDES LEVEL 81 MG/DL (<150)
== END ==
LOC: M LAB REF 16:32
PROVIDERS: ATTEND Internal Medicine
DX: E78.00 Pure hypercholesterolemia, unspecified (principal); I10 Essential (primary) hypertension

== ENCOUNTER → 2023-09-25 | Day surgery (SDC) | payer BC ==
[~2023-09-25] VITALS: Ht 160 cm; Wt 91.6 kg
[~2023-09-25] MED LIST changes: +LIDOCAINE 2% 100MG/5ML SDV (FOR ANES.) As Ordered ONE; +NS 1,000 ML IV ONE; +propofoL 200 MG/20 ML VIAL As Ordered ONE
[2023-09-25 12:17] VITALS: TEMP 97.7
[2023-09-25 12:36] VITALS: BP 123/64; O2SAT 97
== END | disposition home or self-care (01) ==
LOC: M OPP 10:54
PROVIDERS: ATTEND Surgery
DX: R19.5 Other fecal abnormalities (principal); K57.30 Diverticulosis of large intestine without perforation or abscess without bleeding; I10 Essential (primary) hypertension; Z79.899 Other long term (current) drug therapy

== ENCOUNTER → 2024-05-03 | Outpatient (REF) | payer BC ==
[~2024-05-03] MED LIST changes: -LIDOCAINE 2% 100MG/5ML SDV (FOR ANES.) As Ordered ONE; -NS 1,000 ML IV ONE; -propofoL 200 MG/20 ML VIAL As Ordered ONE
[2024-05-03 13:46] LABS: BLOOD UREA NITROGEN 17 MG/DL (9-23); CARBON DIOXIDE LEVEL 26 MMOL/L (20-31); CHLORIDE LEVEL 111 MMOL/L (98-107); CHOLESTEROL LEVEL 227 MG/DL (<200); CREATININE FOR GFR 0.55 MG/DL (0.55-1.30); GLOMERULAR FILTRATION RATE > 60.0 (>51); GLUCOSE, FASTING 91 MG/DL (60-100); HDL CHOLESTEROL 48.2 MG/DL (>40); LDL CHOLESTEROL 163.8 MG/DL (<100); NON-HDL-C 178.8 MG/DL; POTASSIUM SERUM 4.3 MMOL/L (3.5-5.1); SODIUM LEVEL 143 MMOL/L (136-145); TRIGLYCERIDES LEVEL 75 MG/DL (<150)
== END ==
LOC: M LAB REF 12:30
PROVIDERS: ATTEND Internal Medicine
DX: I10 Essential (primary) hypertension (principal); E78.00 Pure hypercholesterolemia, unspecified

== ENCOUNTER 2024-07-01 06:23 | Emergency (ER) | payer BC ==
[~2024-07-01] VITALS: Ht 160 cm; Wt 87.2 kg
[2024-07-01] MEDS ORDERED: OLME40TA (07:16)
[2024-07-01] MEDS: KETOROLAC 30 MG/ML 1ML VIAL IV ONE (07:23)
[2024-07-01] MEDS: NS 1,000 ML IV ONE (07:23)
[2024-07-01] MEDS: ONDANSETRON 4MG 2ML VIAL IV ONE (07:23)
[2024-07-01] MEDS: ACETAMINOPHEN *IV* 1,000 MG in IV 1 EA IV ONE (07:23)
[2024-07-01 07:40] LABS: BASO % 0.5 % (0.0-1.0); EOS # 0.1 10^3/uL (0.0-0.5); EOS % 1.5 % (0.0-3.0); HEMATOCRIT 39.6 % (36.0-47.0); HEMOGLOBIN 12.8 g/dl (12.0-15.5); LYMPH # 2.6 10^3/uL (1.5-5.0); LYMPH % 30.2 % (24.0-44.0); MEAN CORPUSCULAR HEMOGLOBIN 29.2 pg (27.0-33.0); MEAN CORPUSCULAR HGB CONC 32.3 g/dl (32.0-36.5); MEAN CORPUSCULAR VOLUME 90.4 fl (80.0-96.0); MONO # 0.6 10^3/uL (0.0-0.8); MONO % 7.2 % (2.0-8.0); NEUTROPHILS # 5.2 10^3/uL (1.5-8.5); NEUTROPHILS % 60.4 % (36.0-66.0); PLATELET COUNT, AUTOMATED 355 10^3/uL (150-450); RED BLOOD COUNT 4.38 10^6/uL (4.00-5.40); WHITE BLOOD COUNT 8.6 10^3/uL (4.0-10.0)
[2024-07-01 07:58] LABS: LIPASE 36 U/L (12-53)
[2024-07-01 08:00] LABS: ALBUMIN 3.9 G/DL (3.2-5.2); ALKALINE PHOSPHATASE 59 U/L (46-116); ALT/SGPT 21 U/L (7.0-40); AST/SGOT 17 U/L (<34); BILIRUBIN,DIRECT 0.1 MG/DL (<0.4); BILIRUBIN,TOTAL 0.4 MG/DL (0.3-1.2); BLOOD UREA NITROGEN 17 MG/DL (9-23); CALCIUM LEVEL 9.3 MG/DL (8.5-10.1); CARBON DIOXIDE LEVEL 26 MMOL/L (20-31); CHLORIDE LEVEL 110 MMOL/L (98-107); CREATININE FOR GFR 0.54 MG/DL (0.55-1.30); GLOMERULAR FILTRATION RATE > 60.0 (>51); GLUCOSE, FASTING 105 MG/DL (60-100); POTASSIUM SERUM 4.1 MMOL/L (3.5-5.1); SODIUM LEVEL 142 MMOL/L (136-145); TOTAL PROTEIN 6.9 G/DL (5.7-8.2)
[2024-07-01] MEDS: MORPHINE 2 MG/ML 1ML VIAL IV ONE (08:16)
[2024-07-01] MEDS ORDERED: ISOVUE-370 76% 100ML VIAL As Ordered ONE (08:29)
[2024-07-01] MEDS: MORPHINE 4 MG/ML 1ML VIAL IV ONE (09:30)
[2024-07-01] MEDS ORDERED: COLA100C5 PO (10:05)
[2024-07-01 10:24] VITALS: BP 163/79; TEMP 98.3; O2SAT 96
== END 2024-07-01 10:31 | disposition home or self-care (01) ==
LOC: M ED 06:23
DX: K59.00 Constipation, unspecified (principal); K57.90 Diverticulosis of intestine, part unspecified, without perforation or abscess without bleeding; I10 Essential (primary) hypertension; Z79.899 Other long term (current) drug therapy
CPT/HCPCS: 74177; 80048; 80076; 81001; 83690; 85025; 87086; 96361; 96365; 96374; 96375; 96376; 99284; J0131; J1885; J2405; Q9967

== ENCOUNTER → 2024-08-17 | Outpatient (REF) | payer BC ==
[~2024-08-17] MED LIST changes: +COLA100C5 PO; +OLME40TA
[2024-08-17 13:52] LABS: APPEARANCE, URINE HAZY (CLEAR); BACTERIA, URINE AUTO NEGATIVE (NEGATIVE); BILIRUBIN, URINE AUTO NEGATIVE (NEGATIVE); BLOOD, URINE BLOOD NEGATIVE (NEGATIVE); COLOR, URINE YELLOW (YELLOW); GLUCOSE, URINE (UA) AUTO NEGATIVE (NEGATIVE); KETONE, URINE AUTO NEGATIVE (NEGATIVE); LEUKOCYTE ESTERASE, URINE AUTO TRACE (NEGATIVE); NITRITE, URINE AUTO NEGATIVE (NEGATIVE); PROTEIN, URINE AUTO NEGATIVE (NEGATIVE); RBC, URINE AUTO 0 /HPF (0-3); SPECIFIC GRAVITY URINE AUTO 1.009 (1.002-1.035); SQUAMOUS EPITHELIAL CELL UR AU 1 /HPF (0-6); UROBILINOGEN, URINE AUTO 0.2 mg/dL (0.0-2.0); WBC, URINE AUTO 1 /HPF (0-3)
[2024-08-17 13:58] LABS: ALBUMIN 3.9 G/DL (3.2-5.2); ALKALINE PHOSPHATASE 58 U/L (46-116); ALT/SGPT 20 U/L (7.0-40); AST/SGOT 13 U/L (<34); BILIRUBIN,TOTAL 0.4 MG/DL (0.3-1.2); BLOOD UREA NITROGEN 14 MG/DL (9-23); CALCIUM LEVEL 9.6 MG/DL (8.5-10.1); CARBON DIOXIDE LEVEL 29 MMOL/L (20-31); CHLORIDE LEVEL 110 MMOL/L (98-107); CHOLESTEROL LEVEL 232 MG/DL (<200); CHOLESTEROL RISK RATIO 4.03 (<5); CREATININE FOR GFR 0.58 MG/DL (0.55-1.30); GLOMERULAR FILTRATION RATE > 60.0 (>51); GLUCOSE, FASTING 88 MG/DL (60-100); HDL CHOLESTEROL 57.5 MG/DL (>40); LDL CHOLESTEROL 159.1 MG/DL (<100); MAGNESIUM LEVEL 2.1 MG/DL (1.8-2.4); NON-HDL-C 174.5 MG/DL; POTASSIUM SERUM 4.4 MMOL/L (3.5-5.1); SODIUM LEVEL 141 MMOL/L (136-145); TRIGLYCERIDES LEVEL 77 MG/DL (<150)
[2024-08-17 13:59] LABS: THYROID STIMULATING HORMONE 2.452 uIU/ML (0.55-4.78)
[2024-08-17 14:00] LABS: BASO % 0.3 % (0.0-1.0); EOS # 0.1 10^3/uL (0.0-0.5); EOS % 2.1 % (0.0-3.0); HEMATOCRIT 41.2 % (36.0-47.0); HEMOGLOBIN 12.9 g/dl (12.0-15.5); LYMPH # 2.4 10^3/uL (1.5-5.0); LYMPH % 41.1 % (24.0-44.0); MEAN CORPUSCULAR HEMOGLOBIN 29.3 pg (27.0-33.0); MEAN CORPUSCULAR HGB CONC 31.3 g/dl (32.0-36.5); MEAN CORPUSCULAR VOLUME 93.4 fl (80.0-96.0); MONO # 0.5 10^3/uL (0.0-0.8); MONO % 7.9 % (2.0-8.0); NEUTROPHILS # 2.8 10^3/uL (1.5-8.5); NEUTROPHILS % 48.4 % (36.0-66.0); PLATELET COUNT, AUTOMATED 315 10^3/uL (150-450); RED BLOOD COUNT 4.41 10^6/uL (4.00-5.40); WHITE BLOOD COUNT 5.8 10^3/uL (4.0-10.0)
== END ==
LOC: M LAB REF 12:32
PROVIDERS: ATTEND Internal Medicine
DX: I10 Essential (primary) hypertension (principal); E78.00 Pure hypercholesterolemia, unspecified; G43.909 Migraine, unspecified, not intractable, without status migrainosus

== ENCOUNTER → 2024-08-23 | Outpatient (CLI) | payer BC | LOC: M WHC 13:22 | PROVIDERS: ATTEND Internal Medicine | DX: Z12.31 Encounter for screening mammogram for malignant neoplasm of breast (principal) ==

== ENCOUNTER → 2024-11-19 | Outpatient (REF) | payer BC ==
[2024-11-19 14:34] LABS: BLOOD UREA NITROGEN 12 MG/DL (9-23); CALCIUM LEVEL 9.3 MG/DL (8.5-10.1); CARBON DIOXIDE LEVEL 28 MMOL/L (20-31); CHLORIDE LEVEL 104 MMOL/L (98-107); CREATININE FOR GFR 0.57 MG/DL (0.55-1.30); GLOMERULAR FILTRATION RATE > 60.0 (>51); GLUCOSE, FASTING 89 MG/DL (60-100); POTASSIUM SERUM 4.4 MMOL/L (3.5-5.1); SODIUM LEVEL 144 MMOL/L (136-145); TOTAL 25(OH) VITAMIN D 84.7 NG/ML (20.0-100.0)
== END ==
LOC: M LAB REF 13:31
PROVIDERS: ATTEND Internal Medicine
DX: I10 Essential (primary) hypertension (principal); M19.90 Unspecified osteoarthritis, unspecified site; M85.80 Other specified disorders of bone density and structure, unspecified site; M25.572 Pain in left ankle and joints of left foot; E55.9 Vitamin D deficiency, unspecified

== ENCOUNTER → 2025-02-10 | Outpatient (REF) | payer BC ==
[2025-02-12 15:02] LABS: HPV APTIMA Not Detected (Not Detected)
== END ==
LOC: M SFHCWAGY 13:25
PROVIDERS: ATTEND Nurse Practitioner Family
DX: Z12.4 Encounter for screening for malignant neoplasm of cervix (principal)

== ENCOUNTER → 2025-02-10 | Outpatient (CLI) | payer BC | LOC: M WHC 09:47 | PROVIDERS: ATTEND Nurse Practitioner Family | DX: M85.851 Other specified disorders of bone density and structure, right thigh (principal) ==

== ENCOUNTER → 2025-02-17 | Outpatient (REF) | payer BC ==
[2025-02-17 12:29] LABS: BASO % 0.6 % (0.0-1.0); EOS # 0.1 10^3/uL (0.0-0.5); EOS % 2.2 % (0.0-3.0); HEMATOCRIT 42.7 % (36.0-47.0); HEMOGLOBIN 13.1 g/dl (12.0-15.5); LYMPH # 2.9 10^3/uL (1.5-5.0); LYMPH % 45.5 % (24.0-44.0); MEAN CORPUSCULAR HEMOGLOBIN 28.4 pg (27.0-33.0); MEAN CORPUSCULAR HGB CONC 30.7 g/dl (32.0-36.5); MEAN CORPUSCULAR VOLUME 92.4 fl (80.0-96.0); MONO # 0.6 10^3/uL (0.0-0.8); MONO % 9.7 % (2.0-8.0); NEUTROPHILS # 2.6 10^3/uL (1.5-8.5); NEUTROPHILS % 41.7 % (36.0-66.0); PLATELET COUNT, AUTOMATED 325 10^3/uL (150-450); RED BLOOD COUNT 4.62 10^6/uL (4.00-5.40); WHITE BLOOD COUNT 6.3 10^3/uL (4.0-10.0)
[2025-02-17 12:43] LABS: ALBUMIN 3.9 G/DL (3.2-5.2); ALKALINE PHOSPHATASE 60 U/L (35-104); ALT/SGPT 19 U/L (7.0-40); AST/SGOT 19 U/L (<34); BILIRUBIN,TOTAL 0.4 MG/DL (0.3-1.2); BLOOD UREA NITROGEN 13 MG/DL (9-23); CALCIUM LEVEL 9.4 MG/DL (8.5-10.1); CARBON DIOXIDE LEVEL 28 MMOL/L (20-31); CHLORIDE LEVEL 107 MMOL/L (98-107); CHOLESTEROL LEVEL 232 MG/DL (<200); CHOLESTEROL RISK RATIO 3.97 (<5); CREATININE FOR GFR 0.57 MG/DL (0.55-1.30); GLOMERULAR FILTRATION RATE > 90.0 (>51); GLUCOSE, FASTING 91 MG/DL (60-100); HDL CHOLESTEROL 58.3 MG/DL (>40); LDL CHOLESTEROL 154.1 MG/DL (<100); NON-HDL-C 173.7 MG/DL; POTASSIUM SERUM 4.3 MMOL/L (3.5-5.1); SODIUM LEVEL 144 MMOL/L (136-145); TOTAL PROTEIN 6.8 G/DL (5.7-8.2); TRIGLYCERIDES LEVEL 98 MG/DL (<150)
== END ==
LOC: M LAB REF 11:40
PROVIDERS: ATTEND Internal Medicine
DX: Z00.00 Encounter for general adult medical examination without abnormal findings (principal); E78.00 Pure hypercholesterolemia, unspecified; M85.80 Other specified disorders of bone density and structure, unspecified site; M25.572 Pain in left ankle and joints of left foot

== ENCOUNTER → 2025-08-24 | Outpatient (REF) | payer BC ==
[~2025-08-24] MED LIST changes: -EQL50TAB2 PO; +LISI40TA10 PO; -LISI40TA4 PO; +VITA1TAB82 PO
[2025-08-24 12:59] LABS: APPEARANCE, URINE CLEAR (CLEAR); BACTERIA, URINE AUTO NEGATIVE (NEGATIVE); BILIRUBIN, URINE AUTO NEGATIVE (NEGATIVE); BLOOD, URINE BLOOD NEGATIVE (NEGATIVE); GLUCOSE, URINE (UA) AUTO NEGATIVE (NEGATIVE); KETONE, URINE AUTO NEGATIVE (NEGATIVE); LEUKOCYTE ESTERASE, URINE AUTO 1+ (NEGATIVE); NITRITE, URINE AUTO NEGATIVE (NEGATIVE); PROTEIN, URINE AUTO NEGATIVE (NEGATIVE); RBC, URINE AUTO 1 /HPF (0-3); SPECIFIC GRAVITY URINE AUTO 1.005 (1.002-1.035); SQUAMOUS EPITHELIAL CELL UR AU 1 /HPF (0-6); UROBILINOGEN, URINE AUTO 0.2 mg/dL (0.0-2.0); WBC, URINE AUTO 1 /HPF (0-3)
[2025-08-24 13:18] LABS: BASO # 0.0 10^3/uL (0.0-0.2); BASO % 0.6 % (0.0-1.0); EOS # 0.2 10^3/uL (0.0-0.5); EOS % 3.1 % (0.0-3.0); LYMPH # 2.8 10^3/uL (1.5-5.0); LYMPH % 43.6 % (24.0-44.0); MONO # 0.6 10^3/uL (0.0-0.8); MONO % 9.7 % (2.0-8.0); NEUTROPHILS # 2.8 10^3/uL (1.5-8.5); NEUTROPHILS % 42.7 % (36.0-66.0); PLATELET COUNT, AUTOMATED 376 10^3/uL (150-450)
[2025-08-24 13:24] LABS: ALT/SGPT 18 U/L (7.0-40); AST/SGOT 18 U/L (<34); CALCIUM LEVEL 9.5 MG/DL (8.5-10.1); CARBON DIOXIDE LEVEL 28 MMOL/L (20-31); CHLORIDE LEVEL 107 MMOL/L (98-107); CHOLESTEROL LEVEL 230 MG/DL (<200); CHOLESTEROL RISK RATIO 4.00 (<5); CREATININE FOR GFR 0.56 MG/DL (0.55-1.30); GLOMERULAR FILTRATION RATE > 90.0 (>51); LDL CHOLESTEROL 153.8 MG/DL (<100); MAGNESIUM LEVEL 1.9 MG/DL (1.8-2.4); NON-HDL-C 172.6 MG/DL; POTASSIUM SERUM 4.4 MMOL/L (3.5-5.1); SODIUM LEVEL 145 MMOL/L (136-145); TRIGLYCERIDES LEVEL 94 MG/DL (<150)
== END ==
LOC: M LAB REF 12:15
PROVIDERS: ATTEND Internal Medicine
DX: I10 Essential (primary) hypertension (principal); E78.00 Pure hypercholesterolemia, unspecified